=== PATIENT | female | born 1955 | race Caucasian/White ===

== ENCOUNTER → 2017-12-12 | Outpatient (CLI) | payer BC ==
[~2017-12-12] MED LIST: ESTR-26 PO; LEV112 PO; METH-543 PO; PROM-110 PO
--- NOTE | 2017-12-12 15:23 | RADIOLOGY IMAGING REPORT ---
FACILITY: [facility] PATIENT NAME: VERNON RIVERA : [id number] MR: [id number] V: [id number] EXAM DATE: ORDERING PHYSICIAN: JOSE ALFREDO FRANCO TECHNOLOGIST: Rocío William PROCEDURE:BILATERAL DIGITAL SCREENING MAMMOGRAM WITH CAD ASSISTED INTERPRETATION & 3D TOMOSYNTHESIS COMPARISON:Prior mammograms 11/13/16, 11/24/14, 06/11/11. INDICATIONS:SCREENING FINDINGS: Moderate amount of fibroglandular tissue is seen throughout the breasts. The parenchymal pattern has remained stable allowing for difference in mammographic technique & patient positioning. There is no evidence of malignant appearing mass, malignant appearing calcifications or other secondary sign of malignancy in either breast. DIAGNOSTIC CATEGORY 1--NEGATIVE. RECOMMENDATIONS: ROUTINE MAMMOGRAM AND CLINICAL EVALUATION. IMPRESSION: BIRADS 1: Negative. No significant abnormality is seen. Dictated by: Erica Keller M.D. on 12/12/2017 at 14:37 Transcribed by: ISADORA on 12/12/2017 at 14:49 Approved by: Erica Keller M.D. on 12/12/2017 at 15:22 [facility]
== END ==
LOC: MAMO 04:20
PROVIDERS: ATTEND Family Medicine
DX: Z12.31 Encounter for screening mammogram for malignant neoplasm of breast (principal)
CPT/HCPCS: 77063; 77067